=== PATIENT | male | born 1960 | race Caucasian/White ===

== ENCOUNTER 2020-05-16 13:03 | Outpatient (CLI) | payer OTHER ==
[2020-05-16] MEDS ORDERED: OXYC5CAP2 PO (13:55)
[2020-05-16] MEDS ORDERED: MULT-658 PO (13:55)
== END 2020-05-16 23:59 | disposition home or self-care (01) ==
LOC: STAR 13:03
PROVIDERS: ATTEND Student in an Organized Health Care Education/Training Program
DX: Z01.818 Encounter for other preprocedural examination (principal); N20.0 Calculus of kidney
CPT/HCPCS: 93005

== ENCOUNTER 2020-05-20 08:24 | Day surgery (SDC) | payer OTHER ==
[~2020-05-20] VITALS: Ht 167.6 cm; Wt 66.2 kg
[~2020-05-20 08:24] MED LIST: MULT-658 PO; OXYC5CAP2 PO
[2020-05-20 08:49] VITALS: BP 160/107
[2020-05-20] MEDS ORDERED: LIDOCAINE-MPF 1%, 2ML INFIL STA (08:52)
[2020-05-20] MEDS ORDERED: CHLORHEXIDINE 15 ML UDC MM STA (08:52)
[2020-05-20] MEDS ORDERED: LACTATED RINGERS 1,000 ML IV ONE (08:52)
[2020-05-20] MEDS ORDERED: FENTANYL PF 100 MCG/2ML ONE (09:37)
[2020-05-20] MEDS ORDERED: MIDAZOLAM 1 MG/ML, 2ML ONE (09:38)
[2020-05-20] MEDS ORDERED: PROPOFOL 10 MG/ML, 20ML ONE (09:44)
[2020-05-20] MEDS ORDERED: ONDANSETRON 2MG/ML, 2ML ONE (09:44)
[2020-05-20] MEDS ORDERED: DEXAMETHASONE 4 MG/ML, 1ML ONE (09:44)
[2020-05-20] MEDS ORDERED: CEFAZOLIN 1,000 MG ONE ×2 (10:06)
[2020-05-20] MEDS ORDERED: MEPERIDINE/PF 25MG/0.5ML IVPush PRN (10:30)
[2020-05-20] MEDS ORDERED: ONDANSETRON 2MG/ML, 2ML IVPush PRN (10:30)
[2020-05-20] MEDS ORDERED: PROMETHAZINE 25 MG/ML, 1ML IVPush PRN (10:30)
[2020-05-20] MEDS ORDERED: HYDROmorphone 1 MG/ML, 1ML INJ IVPush PRN (10:30)
[2020-05-20] MEDS ORDERED: DIAZEPAM 5 MG/ML, 2ML IVPush PRN (10:30)
[2020-05-20] MEDS ORDERED: FENTANYL PF 100 MCG/2ML IV PRN (10:30)
[2020-05-20] MEDS ORDERED: ACETAMINOPHEN 325 MG TABLET PO PRN (10:30)
[2020-05-20] MEDS ORDERED: OMNIPAQUE 350 MG/ML, 50 ML BOTTLE ONE (11:00)
[2020-05-20] MEDS ORDERED: GLYCOPYRROLATE 0.4 MG/2 ML, 2ML ONE (11:47)
[2020-05-20] MEDS ORDERED: GLYCOPYRROLATE 0.2MG/1ML, 5ML IVPush ONE (12:00)
[2020-05-20] MEDS ORDERED: hydrALAzine 20 MG/ML, 1ML IV ONE (13:04)
[2020-05-20] MEDS ORDERED: hydrALAzine 20 MG/ML, 1ML ONE (13:19)
[2020-05-20 13:22] VITALS: BP 200/104
[2020-05-20] MEDS: OXYcodone 5 MG/5 ML ORAL.SOL UDC PO PRN ×2 (13:42→14:05)
[2020-05-20] MEDS ORDERED: PHENAZOPYRIDINE 200 MG TABLET ONE (14:09)
[2020-05-20] MEDS ORDERED: PHENAZOPYRIDINE 200 MG TABLET PO ONE (14:30)
[2020-05-20] MEDS ORDERED: PHENAZOPYRIDINE 100 MG TABLET PO ONE (14:30)
[2020-05-25] MEDS ORDERED: EPINEPHRINE 1 MG/ML, 1ML ONE (06:34)
[2020-05-25] MEDS ORDERED: MANNITOL PMX 20% 500 ML ONE (06:34)
[2020-05-25] MEDS ORDERED: FUROSEMIDE 20 MG/2 ML ONE (06:34)
[2020-05-25] MEDS ORDERED: BUPIVACAINE/PF 0.25% ONE (06:34)
[2020-05-25] MEDS ORDERED: INDIGO CARMINE 0.8%, 5ML ONE (06:34)
== END 2020-05-20 15:20 | disposition home or self-care (01) ==
LOC: OUT 08:24
PROVIDERS: ATTEND Student in an Organized Health Care Education/Training Program
DX: N13.2 Hydronephrosis with renal and ureteral calculous obstruction (principal); Z11.59 Encounter for screening for other viral diseases; N28.89 Other specified disorders of kidney and ureter; Z79.891 Long term (current) use of opiate analgesic; Z87.442 Personal history of urinary calculi; Z87.891 Personal history of nicotine dependence; Z80.3 Family history of malignant neoplasm of breast
CPT/HCPCS: 36415; 52356; 74420; 82360; 87635; 88300; C1758; C1769; C2617; J0360; J0690; J1100; J2250; J2405; J2704; J3010; J7120; Q9967

== ENCOUNTER 2020-05-25 05:39 | Observation (INO) | payer OTHER ==
[~2020-05-25] VITALS: Ht 167.6 cm; Wt 72.8 kg
[2020-05-25] MEDS ORDERED: CHLORHEXIDINE 15 ML UDC MM STA (06:17)
[2020-05-25] MEDS ORDERED: LACTATED RINGERS 1,000 ML IV SCH (06:17)
[2020-05-25 06:18] VITALS: BP 121/80
[2020-05-25] MEDS ORDERED: CHLORHEXIDINE 15 ML UDC ONE (06:27)
[2020-05-25] MEDS ORDERED: FENTANYL PF 250 MCG/5ML ONE (07:06)
[2020-05-25] MEDS ORDERED: MIDAZOLAM 1 MG/ML, 2ML ONE (07:06)
[2020-05-25] MEDS ORDERED: DEXAMETHASONE 4 MG/ML, 1ML ONE (07:31)
[2020-05-25] MEDS ORDERED: PROPOFOL 10 MG/ML, 20ML ONE (07:31)
[2020-05-25] MEDS ORDERED: ROCURONIUM 10 MG/ML,10ML ONE (07:31)
[2020-05-25] MEDS ORDERED: SUCCINYLCHOLINE 20 MG/ML, 10ML ONE (07:31)
[2020-05-25] MEDS ORDERED: ONDANSETRON 2MG/ML, 2ML ONE (07:31)
[2020-05-25] MEDS ORDERED: SUGAMMADEX 200 MG/2 ML IVPush ONE (07:31)
[2020-05-25] MEDS ORDERED: CEFAZOLIN 1,000 MG ONE (07:31)
[2020-05-25] MEDS ORDERED: METOCLOPRAMIDE 5 MG/ML, 2ML IV PRN (09:00)
[2020-05-25] MEDS ORDERED: OXYcodone 5 MG/5 ML ORAL.SOL UDC PO PRN (09:00)
[2020-05-25] MEDS ORDERED: ONDANSETRON 2MG/ML, 2ML IVPush PRN (09:00)
[2020-05-25] MEDS ORDERED: LABETALOL 5MG/ML, 20ML IV PRN (09:00)
[2020-05-25] MEDS ORDERED: KETOROLAC 30 MG/1 ML IV PRN (09:00)
[2020-05-25] MEDS ORDERED: PROMETHAZINE 25 MG/ML, 1ML IV PRN (09:00)
[2020-05-25] MEDS ORDERED: ALBUTEROL SULFATE 2.5 MG/3 ML NPPB PRN (09:00)
[2020-05-25] MEDS ORDERED: hydrALAzine 20 MG/ML, 1ML IV PRN (09:00)
[2020-05-25] MEDS ORDERED: MEPERIDINE/PF 25MG/0.5ML IVPush PRN (09:00)
[2020-05-25] MEDS ORDERED: DIAZEPAM 5 MG/ML, 2ML IV PRN ×2 (09:00)
[2020-05-25] MEDS ORDERED: ONDANSETRON 2MG/ML, 2ML IV PRN (11:30)
[2020-05-25] MEDS: ACETAMINOPHEN 325 MG TABLET PO SCH ×3 (11:30→23:48)
[2020-05-25] MEDS ORDERED: FENTANYL PF 100 MCG/2ML ONE ×2 (11:31→12:12)
[2020-05-25] MEDS ORDERED: OXYcodone 5 MG/5 ML ORAL.SOL UDC ONE (11:31)
[2020-05-25] MEDS: FENTANYL PF 100 MCG/2ML IV PRN ×2 (11:32→11:42)
[2020-05-25] MEDS ORDERED: HYDROmorphone 1 MG/ML, 1ML INJ ONE (11:44)
[2020-05-25] MEDS: HYDROmorphone 1 MG/ML, 1ML INJ IV PRN ×4 (11:46→15:47)
[2020-05-25] MEDS ORDERED: DIAZEPAM 5 MG/ML, 2ML ONE (11:47)
[2020-05-25] MEDS ORDERED: ACETAMINOPHEN 650 MG/20.3 ML UDC ONE (12:12)
[2020-05-25 12:35] LABS: ALBUMIN 3.1 g/dL (3.4-5.0); ANION GAP 6 mmol/L (5-15); CALCIUM 8.7 mg/dL (8.5-10.1); CHLORIDE 110 mmol/L (98-107); CREATININE 1.04 mg/dL (0.7-1.3)
[2020-05-25] MEDS: HEPARIN 5,000 UNITS/ML, 1ML SQ SCH (13:00)
[2020-05-25] MEDS: SODIUM CHLORIDE 0.9% 1,000 ML IV SCH ×2 (13:31→23:49)
[2020-05-25 13:33] VITALS: BP 151/91
[2020-05-25] MEDS: OXYcodone 5 MG/5 ML ORAL.SOL UDC PO PRN ×4 (18:12→22:49)
[2020-05-25 19:43] VITALS: BP 129/80
[2020-05-25] MEDS ORDERED: HYDROmorphone 1 MG/ML, 1ML INJ IV PRN (20:00)
[2020-05-25] MEDS: DOCUSATE 100 MG CAPSULE PO SCH (20:21)
[2020-05-25 23:54] VITALS: BP 132/84
[2020-05-26] MEDS: OXYcodone 5 MG/5 ML ORAL.SOL UDC PO PRN ×4 (02:56→16:31)
[2020-05-26 02:59] VITALS: BP 134/81
[2020-05-26] MEDS: ACETAMINOPHEN 325 MG TABLET PO SCH ×3 (05:44→17:56)
[2020-05-26 06:15] LABS: ANION GAP 3 mmol/L (5-15); CALCIUM 7.6 mg/dL (8.5-10.1); CHLORIDE 110 mmol/L (98-107)
[2020-05-26 06:16] LABS: CREATININE 0.78 mg/dL (0.7-1.3)
[2020-05-26 08:51] VITALS: BP 116/75
[2020-05-26] MEDS: DOCUSATE 100 MG CAPSULE PO SCH (08:57)
[2020-05-26] MEDS: HEPARIN 5,000 UNITS/ML, 1ML SQ SCH ×2 (08:57→16:00)
[2020-05-26] MEDS ORDERED: POLYETHYLENE GLYCOL 17 GM PACKET PO SCH (09:00)
[2020-05-26] MEDS: SODIUM CHLORIDE 0.9% 1,000 ML IV SCH (09:30)
[2020-05-26 15:28] VITALS: BP 155/93
[2020-05-26] MEDS ORDERED: OXYC5CAP2 PO (15:46)
[2020-05-26 16:59] VITALS: BP 149/94
== END 2020-05-26 18:07 | disposition home or self-care (01) ==
LOC: OUT 05:39 → 4NE 12:59 → OUT 14:13 → ORIP 14:13 → 4NE 14:54
PROVIDERS: ADMIT Student in an Organized Health Care Education/Training Program; ATTEND Student in an Organized Health Care Education/Training Program
DX: Z03.818 Encounter for observation for suspected exposure to other biological agents ruled out (principal); N28.89 Other specified disorders of kidney and ureter; N13.2 Hydronephrosis with renal and ureteral calculous obstruction; Z87.891 Personal history of nicotine dependence; Z79.899 Other long term (current) drug therapy; Z87.442 Personal history of urinary calculi; Z90.5 Acquired absence of kidney
CPT/HCPCS: 36415; 50543; 80048; 82040; 85014; 85018; 86850; 86900; 87635; 88307; 96361; 96372; 96374; 96376; C1729; C1760; G0378; J0171; J0330; J0690; J1100; J1170; J1644; J1940; J2250; J2405; J2704; J3010; J3360; J3490; J7030; J7120

== ENCOUNTER 2021-06-28 05:56 | Day surgery (SDC) | payer OTHER ==
[~2021-06-28] VITALS: Ht 167.6 cm; Wt 66.1 kg
[2021-06-28 06:35] VITALS: BP 160/100
[2021-06-28] MEDS ORDERED: SODIUM CHLORIDE 0.9% 1,000 ML IV SCH (07:00)
[2021-06-28] MEDS ORDERED: FENTANYL PF 100 MCG/2ML ONE (08:35)
[2021-06-28] MEDS ORDERED: MIDAZOLAM 1 MG/ML, 5ML ONE (08:35)
[2021-06-28] MEDS ORDERED: NALOXONE 1 MG/ML, 2ML ONE (08:35)
[2021-06-28] MEDS ORDERED: FLUMAZENIL 0.1 MG/1 ML, 5ML ONE (08:35)
== END 2021-06-28 11:45 | disposition home or self-care (01) ==
LOC: OUT 05:56
PROVIDERS: ATTEND Student in an Organized Health Care Education/Training Program
DX: J98.59 Other diseases of mediastinum, not elsewhere classified (principal); C78.01 Secondary malignant neoplasm of right lung; N28.89 Other specified disorders of kidney and ureter; Z79.891 Long term (current) use of opiate analgesic; Z79.899 Other long term (current) drug therapy; Z87.442 Personal history of urinary calculi; Z87.891 Personal history of nicotine dependence
CPT/HCPCS: 32408; 71045; 88305; 88333; 88341; 88342; 99156; 99157; J2250; J3010; J7030; 77012; J2310